=== PATIENT | female | born 1960 | race Caucasian/White ===

== ENCOUNTER 2020-02-13 16:53 | Inpatient (IN) | payer BC, MEDICARE, MEDICAID, SELFPAY ==
[2020-02-27 04:24] VITALS: BMI 19.3
[2020-02-28] VITALS (12 sets, daily range): BP systolic 80–108; BP diastolic 50–61; PULSE 67–75; RESP 18–28; TEMP 36.2–37.1; O2SAT 90–96
[2020-02-28] MEDS: 0.9 % Sodium Chloride Flush 3 ML SYRINGE 2 ML IVFLUSH ×3 (04:21→16:26)
[2020-02-28] MEDS: rOPINIRole HCL 2 MG TABLET G-TUBE ×3 (06:33→21:21)
[2020-02-28] MEDS: Venlafaxine HCL 25 MG TABLET G-TUBE ×3 (06:33→21:21)
[2020-02-28] MEDS: Albuterol/Iprat 2.5/0.5MG 3 ML AMPUL.NEB INHALE ×4 (07:29→20:18)
[2020-02-28] MEDS: Chlorhexidine Gluc Oral Rinse 15 ML MOUTHWASH BUCCAL (08:48)
[2020-02-28] MEDS: polyethylene glycoL 3350 17 GM POWD.PACK G-TUBE (08:48)
[2020-02-28] MEDS: amantadine HCL 100 MG CAPSULE G-TUBE ×2 (08:53→21:25)
[2020-02-28] MEDS: Benztropine Mesylate 0.5 MG TABLET G-TUBE ×2 (08:53→21:21)
[2020-02-28] MEDS: Sennosides/Docusate Sodium TABLET 1 TAB G-TUBE ×2 (08:53→21:21)
[2020-02-28] MEDS: Carbidopa/Levodopa 25/100 TABLET 1 TAB G-TUBE ×5 (08:53→21:34)
[2020-02-28] MEDS: Zinc Oxide 20% Ointment 28.35 GM TUBE 1 APPL TOPICAL (09:01)
--- NOTE | 2020-02-28 13:18 | PM.IMPN ---
Subjective Subjective Date of Service: 02/28/20 Interval History: nonverbal ROS unreliable Physical Exam Vital Signs and I&O and Narrative: Vital Signs and I&O: Vital Signs Temp 98.7 F 02/28/20 11:57 Pulse 70 02/28/20 11:57 Resp 18 02/28/20 11:57 BP 108/60 02/28/20 11:57 Pulse Ox 93 02/28/20 11:57 Intake & Output 02/27/20 02/28/20 02/28/20 18:59 06:59 18:59 Output Total 200 / 200 Balance -200 / -200 Urine Output (Aver age ml/kg/hr) 0.37 Output: Output, Urine Am ount 200 / 200 Other: Urine [place] Urine Color Harris Body Mass Index 19.3 Const: General: comfortable and ill appearing Resp: Effort & Inspection: uses accessory muscles (intermittently) Cardio: Heart sounds: S1 normal heart sound present and S2 normal heart sound present GI: Palpation (GI): Soft to palpation Neuro: Other: non verbal Objective Data Current Medications Generic Name Dose Route Start Last Admin Trade Name Freq PRN Reason Stop Dose Admin Acetaminophen 350 mg 02/28/20 00:00 Acetaminophen Oral Liquid 650 Mg/20.3 Ml Solution G-TUBE Q6H PRN Fever Albuterol/Ipratropium 3 ml 02/28/20 08:00 02/28/20 11:53 Albuterol/Iprat 2.5/0.5mg 3 Ml Ampul.Neb INHALE 3 ml RQID LEE ANN Administration Amantadine HCl 100 mg 02/28/20 09:00 02/28/20 08:53 Amantadine Hcl 100 Mg Capsule G-TUBE 100 mg BID LEE ANN Administration Benztropine Mesylate 0.5 mg 02/28/20 09:00 02/28/20 08:53 Benztropine Mesylate 0.5 Mg Tablet G-TUBE 0.5 mg BID LEE ANN Administration Carbidopa/Levodopa 1 tab 02/28/20 08:00 02/28/20 12:15 Carbidopa/Levodopa 25/100 Tablet G-TUBE 1 tab 0800,1100,1400 LEE ANN Administration Carbidopa/Levodopa 1 tab 02/28/20 17:00 Carbidopa/Levodopa 25/100 Tablet G-TUBE 1700,2000,2300 LEE ANN Chlorhexidine Gluconate 15 ml 02/28/20 09:00 02/28/20 08:48 Chlorhexidine Gluc Oral Rinse 15 Ml Mouthwash BUCCAL 15 ml BID LEE ANN Administration Entacapone 200 mg 02/28/20 08:00 02/28/20 12:15 Entacapone 200 Mg Tablet G-TUBE 200 mg 0800,1100,1400 LEE ANN Administration Entacapone 200 mg 02/28/20 17:00 Entacapone 200 Mg Tablet G-TUBE 1700,2000,2300 LEE ANN Lactulose 10 gm 02/28/20 00:00 Lactulose 20 Gm/30 Ml Solution G-TUBE BID PRN Constipation Melatonin 3 mg 02/28/20 21:00 Melatonin 3 Mg Tablet PO BEDTIME LEE ANN Morphine Sulfate 1 mg 02/28/20 00:00 Morphine Sulfate 2 Mg/Ml Cartridge IVPUSH Q4H PRN Pain, Severe (Pain Scale 7-10) Omeprazole 20 mg 02/28/20 06:30 02/28/20 06:33 Omeprazole 20 Mg/10 Ml Susp.Recon G-TUBE 20 mg BID@0630,1630 LEE ANN Administration Polyethylene Glycol 17 gm 02/28/20 09:00 02/28/20 08:48 Polyethylene Glycol 3350 17 Gm Powd.Pack G-TUBE 17 gm Q2D LEE ANN Administration Ropinirole HCl 2 mg 02/28/20 06:00 02/28/20 06:33 Ropinirole Hcl 2 Mg Tablet G-TUBE 2 mg TID@0600,1400,2200 LEE ANN Administration Senna/Docusate Sodium 1 tab 02/28/20 09:00 02/28/20 08:53 Sennosides/Docusate Sodium Tablet G-TUBE 1 tab BID LEE ANN Administration Sodium Chloride 2 ml 02/28/20 00:00 02/28/20 08:49 0.9 % Sodium Chloride Flush 3 Ml Syringe IVFLUSH 2 ml QSHIFT LEE ANN Administration Venlafaxine HCl 25 mg 02/28/20 06:00 02/28/20 06:33 Venlafaxine Hcl 25 Mg Tablet G-TUBE 25 mg TID@0600,1400,2200 LEE ANN Administration Zinc Oxide 1 appl 02/28/20 09:00 02/28/20 09:01 Zinc Oxide 20% Ointment 28.35 Gm Tube TOPICAL 1 appl DAILY LEE ANN Administration Protocol Labs CBC & Chem 7: 02/26/20 18:40 02/26/20 18:40 Labs: Laboratory Results - last 24 hr 02/26/20 02/26/20 18:40 18:40 MCV 106.1 H MCH 33.7 H MCHC 31.8 RDW Coeff of Margarita 14.5 Plt Count 88 L MPV 12.4 H Absolute Nucleated RBC 0.000 Nucleated RBC % (auto) 0.0 Bicarbonate 31 H Anion Gap 12 Estimated Creat Clear 69.9 Est GFR (Non-Af Amer) > 60 Random Glucose 129 H Progress Note: A&P (1) Parkinsons: Status: Acute (2) Acute and chronic respiratory failure: Status: Acute (3) Severe protein-calorie malnutrition: Status: Acute Assessment and Plan: This is an unfortunate 60-year-old female with advanced Parkinson's disease who presented to the hospital with acute on chronic respiratory failure requiring mechanical ventilation in the ICU. She was subsequently transferred out of the intensive care on 02/16/2020 where her treatment for pneumonia was continued. Unfortunately on 02/18/2022 patient had respiratory arrest (due to aspiration/mucus plug) leading to cardiac arrest. She had roughly 3 minutes of CPR with ROSC and was subsequently transferred back to the intensive care and placed on a ventilator. She was treated again for aspiration pneumonia and subsequently taken off the vent and transferred to the floor. 1. Acute on Chronic resp failure still on high flow 2. Aspiration / Mucous plugging remains afebrile has completed 7 days of Augmentin continue chest pt / other supportive care 3. Parkinson's diease -- advanced continue her meds 4. Poor dentition to be evaluated at facility --for extraction 5. Severe protein-calaorie malnutrition tube feeds 6. Anemia s/p prbc transfusions in the unit --monitor 7. GERD ppi 8. Severe protein calory malnutrition--tube feed DNR/DNI DVT pptx, mechanical -- due to significant anemia and previously documented thrombocytopenia with heparin products
[2020-02-28] MEDS: Melatonin 3 MG TABLET PO (21:21)
[2020-02-29] VITALS (14 sets, daily range): BP systolic 90–104; BP diastolic 52–72; PULSE 58–75; RESP 18–28; TEMP 36.4–37.2; O2SAT 90–99
[2020-02-29] MEDS: 0.9 % Sodium Chloride Flush 3 ML SYRINGE 2 ML IVFLUSH ×4 (00:20→22:44)
[2020-02-29] MEDS: Carbidopa/Levodopa 25/100 TABLET 1 TAB G-TUBE ×7 (00:20→22:43)
[2020-02-29] MEDS: rOPINIRole HCL 2 MG TABLET G-TUBE ×3 (05:52→21:05)
[2020-02-29] MEDS: Venlafaxine HCL 25 MG TABLET G-TUBE ×3 (05:52→21:05)
[2020-02-29] MEDS: Albuterol/Iprat 2.5/0.5MG 3 ML AMPUL.NEB INHALE ×4 (07:27→19:10)
[2020-02-29] MEDS: Benztropine Mesylate 0.5 MG TABLET G-TUBE ×2 (10:20→21:05)
[2020-02-29] MEDS: amantadine HCL 100 MG CAPSULE G-TUBE ×2 (10:21→21:05)
[2020-02-29] MEDS: Sennosides/Docusate Sodium TABLET 1 TAB G-TUBE (10:21)
[2020-02-29] MEDS: Zinc Oxide 20% Ointment 28.35 GM TUBE 1 APPL TOPICAL (10:22)
--- NOTE | 2020-02-29 10:48 | HO.PM.IMPN ---
Subjective Subjective Date of Service: 02/29/20 Interval History: Seen in follow-up for acute on chronic respiratory failure and having difficulty weaning from high-flow O2. No new events. She appeared comfortable. Minimal interaction Review of Systems Gen: no fever Neuro: confused Physical Exam Vital Signs and I&O and Narrative: Vital Signs and I&O: Vital Signs Temp 99 F 02/29/20 07:55 Pulse 68 02/29/20 07:55 Resp 19 02/29/20 07:55 BP 97/52 L 02/29/20 07:55 Pulse Ox 99 02/29/20 07:55 Body Mass Index 19.3 Constitutional Awake and Alert, No apparent distress Neck Supple, No lymphadenopathy Cardiovascular RRR, No M/R/G, S1 S2, No S3 S4, No pedal edema Respiratory Lungs clear, No respiratory distress Gastrointestinal Non tender, Non-distended Skin No rash Neurological non communicating Psychological flat Objective Data Current Medications Generic Name Dose Route Start Last Admin Trade Name Freq PRN Reason Stop Dose Admin Acetaminophen 350 mg 02/28/20 00:00 Acetaminophen Oral Liquid 650 Mg/20.3 Ml Solution G-TUBE Q6H PRN Fever Albuterol/Ipratropium 3 ml 02/28/20 08:00 02/29/20 07:27 Albuterol/Iprat 2.5/0.5mg 3 Ml Ampul.Neb INHALE 3 ml RQID LEE ANN Administration Amantadine HCl 100 mg 02/28/20 09:00 02/29/20 10:21 Amantadine Hcl 100 Mg Capsule G-TUBE 100 mg BID LEE ANN Administration Benztropine Mesylate 0.5 mg 02/28/20 09:00 02/29/20 10:20 Benztropine Mesylate 0.5 Mg Tablet G-TUBE 0.5 mg BID LEE ANN Administration Carbidopa/Levodopa 1 tab 02/28/20 08:00 02/29/20 07:50 Carbidopa/Levodopa 25/100 Tablet G-TUBE 1 tab 0800,1100,1400 LEE ANN Administration Carbidopa/Levodopa 1 tab 02/28/20 17:00 02/29/20 00:20 Carbidopa/Levodopa 25/100 Tablet G-TUBE 1 tab 1700,2000,2300 LEE ANN Administration Chlorhexidine Gluconate 15 ml 02/28/20 09:00 02/29/20 10:21 Chlorhexidine Gluc Oral Rinse 15 Ml Mouthwash BUCCAL Not Given BID LEE ANN Entacapone 200 mg 02/28/20 08:00 02/29/20 07:50 Entacapone 200 Mg Tablet G-TUBE 200 mg 0800,1100,1400 LEE ANN Administration Entacapone 200 mg 02/28/20 17:00 02/29/20 00:20 Entacapone 200 Mg Tablet G-TUBE 200 mg 1700,2000,2300 LEE ANN Administration Lactulose 10 gm 02/28/20 00:00 Lactulose 20 Gm/30 Ml Solution G-TUBE BID PRN Constipation Melatonin 3 mg 02/28/20 21:00 02/28/20 21:21 Melatonin 3 Mg Tablet PO 3 mg BEDTIME LEE ANN Administration Morphine Sulfate 1 mg 02/28/20 00:00 Morphine Sulfate 2 Mg/Ml Cartridge IVPUSH Q4H PRN Pain, Severe (Pain Scale 7-10) Omeprazole 20 mg 02/28/20 06:30 02/29/20 05:52 Omeprazole 20 Mg/10 Ml Susp.Recon G-TUBE 20 mg BID@0630,1630 LEE ANN Administration Polyethylene Glycol 17 gm 02/28/20 09:00 02/28/20 08:48 Polyethylene Glycol 3350 17 Gm Powd.Pack G-TUBE 17 gm Q2D LEE ANN Administration Ropinirole HCl 2 mg 02/28/20 06:00 02/29/20 05:52 Ropinirole Hcl 2 Mg Tablet G-TUBE 2 mg TID@0600,1400,2200 LEE ANN Administration Senna/Docusate Sodium 1 tab 02/28/20 09:00 02/29/20 10:21 Sennosides/Docusate Sodium Tablet G-TUBE 1 tab BID LEE ANN Administration Sodium Chloride 2 ml 02/28/20 00:00 02/29/20 08:01 0.9 % Sodium Chloride Flush 3 Ml Syringe IVFLUSH 2 ml QSHIFT LEE ANN Administration Venlafaxine HCl 25 mg 02/28/20 06:00 02/29/20 05:52 Venlafaxine Hcl 25 Mg Tablet G-TUBE 25 mg TID@0600,1400,2200 LEE ANN Administration Zinc Oxide 1 appl 02/28/20 09:00 02/29/20 10:22 Zinc Oxide 20% Ointment 28.35 Gm Tube TOPICAL 1 appl DAILY LEE ANN Administration Protocol Labs CBC & Chem 7: 02/26/20 18:40 09/29/20 18:40 Assessment and Plan (1) Severe protein-calorie malnutrition: Status: Acute (2) Acute and chronic respiratory failure: Status: Acute (3) Parkinsons: Status: Acute Assessment and Plan: 60-year-old female with advanced Parkinson's disease who presented to the hospital with acute on chronic respiratory failure requiring mechanical ventilation in the ICU. She was subsequently transferred out of the intensive care on 02/16/2020 where her treatment for pneumonia was continued. Unfortunately on 02/18/2022 patient had respiratory arrest (due to aspiration/mucus plug) leading to cardiac arrest. She had roughly 3 minutes of CPR with ROSC and was subsequently transferred back to the intensive care and placed on a ventilator. She was treated again for aspiration pneumonia and subsequently taken off the vent and transferred to the floor. 1. Acute on Chronic resp failure still on high flow and not making much progress 2. Aspiration / Mucous plugging remains afebrile has completed 7 days of Augmentin continue chest pt / other supportive care 3. Parkinson's diease -- advanced continue her meds 4. Poor dentition to be evaluated on outpatient basis for extraction 5. Severe protein-calaorie malnutrition tube feeds 6. Anemia s/p prbc transfusion, monitor. Transfuse if Hgb < 7 7. GERD--PPI 8. 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 Patient's overall progonosis is very poor and will attempt to talk to family again about possible consideration of hospice/[employer] WORK[employer]ICE especially in light of severe hypoxia and unable to wean from high flow O2
--- NOTE | 2020-02-29 12:08 | MHC.CM.PN ---
per multi dis rounds pt remains on high flow 02 therefore ca not rewturn to [facility] at this time
--- NOTE | 2020-02-29 13:49 | MHC.CLN ---
F/U PT TOLERATING OSMOLITE AT MAX GOAL RATE 40CC/HR WITH 120CC FREE WATER FLUSHES Q 4 HRS PROVIDES 1440KCALS (38KCALS/KG), 60G PROTEIN (1.6G/KG), 1451CC TOTAL WATER (38CC/KG) MONITOR TOLERANCE, LYTES AND RESIDUALS CLOSELY RAJENDRA IN PLACE FOR WOUND HEALING FOLLOWING
--- NOTE | 2020-02-29 19:16 | PC.NURSE ---
Upon initail assesment, this RN found pt o2 sats 86% on high flow. Resp at bedside suntion pt for thick secreatiosn and admin resp treat. Sats increased to 89-90%. Pt, with alert labored breathing but no other signs of distress. Will cont to monitor
[2020-02-29] MEDS: Melatonin 3 MG TABLET PO (21:05)
[2020-03-01] VITALS (15 sets, daily range): BP systolic 82–104; BP diastolic 44–63; PULSE 55–70; RESP 18–32; TEMP 36.3–36.9; O2SAT 90–93
[2020-03-01] MEDS: Venlafaxine HCL 25 MG TABLET G-TUBE ×3 (05:38→21:11)
[2020-03-01] MEDS: rOPINIRole HCL 2 MG TABLET G-TUBE ×3 (05:38→21:11)
[2020-03-01] MEDS: Carbidopa/Levodopa 25/100 TABLET 1 TAB G-TUBE ×6 (07:46→23:02)
[2020-03-01] MEDS: 0.9 % Sodium Chloride Flush 3 ML SYRINGE 2 ML IVFLUSH ×2 (07:47→18:31)
[2020-03-01] MEDS: Albuterol/Iprat 2.5/0.5MG 3 ML AMPUL.NEB INHALE ×4 (08:03→19:57)
[2020-03-01 10:17] LABS: Basophils Percent Auto 0.3 % (0-2); Eosinophils Percent Auto 0.5 % (0-4); Hemoglobin 7.7 g/dl (12.0-16.0); Lymphocytes Percent Auto 6.6 % (20-40); MANUAL DIFF FLAG SCAN; Mean Corpuscular Volume 106.6 fL (80-98); PLT CLUMP 1; SCAN SMEAR FLAG 1
[2020-03-01 10:19] LABS: Hematocrit 24.2 % (37-47); Imm Gran Abs Auto 0.04 X10*3/uL (0.00-0.03); Imm Gran Pct Auto 0.5 % (0.0-0.4); Lymphocytes Absolute Auto 0.5 X10*3/uL (1.2-4.9); Mean Corpuscular HGB Conc 31.8 g/dl (31.0-35.0); Mean Corpuscular Hemoglobin 33.9 pg (27.0-33.0); Mean Platelet Volume 13.6 fL (9.4-12.3); Monocytes Absolute Auto 0.5 X10*3/uL (0.1-1.2); Monocytes Percent Auto 7.1 % (2-11); Neutrophils Absolute Auto 6.2 X10*3/uL (2.0-8.3); Red Blood Count 2.27 X10*6/uL (4.20-5.50); Red Cell Distribution Width 14.5 % (11.0-16.0)
[2020-03-01] MEDS: polyethylene glycoL 3350 17 GM POWD.PACK G-TUBE (10:19)
[2020-03-01] MEDS: Benztropine Mesylate 0.5 MG TABLET G-TUBE ×2 (10:19→21:11)
[2020-03-01] MEDS: amantadine HCL 100 MG CAPSULE G-TUBE ×2 (10:19→21:11)
[2020-03-01] MEDS: Sennosides/Docusate Sodium TABLET 1 TAB G-TUBE (10:19)
[2020-03-01 10:20] LABS: Anion Gap 13 (12-20); Blood Urea Nitrogen 24 mg/dL (9-16); Calcium 8.1 mg/dL (8.4-10.2); Carbon Dioxide 33 mmol/L (22-29); Chloride 95 mmol/L (96-108); Creatinine Clr Calc Pharmacy 64.5; Estimated Glomerular Filt Rate > 60; Glucose Random 103 mg/dL (60-115); Sodium 136 mmol/L (135-145)
[2020-03-01] MEDS: Zinc Oxide 20% Ointment 28.35 GM TUBE 1 APPL TOPICAL (10:20)
[2020-03-01 10:21] LABS: PLT ABN DIST 1
[2020-03-01 12:11] LABS: White Blood Count 7.3 X10*3/uL (4.8-10.8)
[2020-03-01 12:14] LABS: Platelet Count 69 X10*3/uL (160-400)
[2020-03-01 12:16] LABS: SLIDE REVIEW VERIFIED
--- NOTE | 2020-03-01 12:59 | P.PNIM_ITS ---
Subjective Subjective Date of Service: 03/01/20 Interval History: patient seen and examined at bedside patient continues to remain on 60% of high-flow oxygen Physical Exam Vital Signs and I&O and Narrative: Vital Signs and I&O: Vital Signs Temp 98.0 F 03/01/20 12:12 Pulse 67 03/01/20 12:12 Resp 18 03/01/20 12:12 BP 94/60 03/01/20 07:51 Pulse Ox 93 03/01/20 12:12 Intake & Output 02/29/20 03/01/20 03/01/20 18:59 06:59 18:59 Output Total 300 / 825 525 / 825 Balance -300 / -825 -525 / -825 Urine Output (Aver age ml/kg/hr) 0.56 0.97 0.97 Output: Output, Urine Am ount 300 / 600 300 / 600 Output, Urine Am ount (Catheter) 225 / 225 Urethral 225 / 225 Other: NPO Yes Yes Yes Number of Incont inent Bowel 2 1 Movements Urine Color [place] Stool incontinen Stool Color Brown Brown Stool Consistenc y Liquid Liquid Body Mass Index 19.3 Constitutional Awake and Alert, No apparent distress Neck Supple, No lymphadenopathy Cardiovascular RRR, No M/R/G, S1 S2, No S3 S4, No pedal edema Respiratory Lungs clear, No respiratory distress Gastrointestinal Non tender, Non-distended Skin No rash Neurological non communicating Psychological flat Const: General: comfortable and ill appearing Resp: Effort & Inspection: uses accessory muscles (intermittently) Cardio: Heart sounds: S1 normal heart sound present and S2 normal heart sound present GI: Palpation (GI): Soft to palpation Neuro: Other: non verbal Objective Data Current Medications Generic Name Dose Route Start Last Admin Trade Name Freq PRN Reason Stop Dose Admin Acetaminophen 350 mg 02/28/20 00:00 Acetaminophen Oral Liquid 650 Mg/20.3 Ml Solution G-TUBE Q6H PRN Fever Albuterol/Ipratropium 3 ml 02/28/20 08:00 03/01/20 11:33 Albuterol/Iprat 2.5/0.5mg 3 Ml Ampul.Neb INHALE 3 ml RQID LEE ANN Administration Amantadine HCl 100 mg 02/28/20 09:00 03/01/20 10:19 Amantadine Hcl 100 Mg Capsule G-TUBE 100 mg BID LEE ANN Administration Benztropine Mesylate 0.5 mg 02/28/20 09:00 03/01/20 10:19 Benztropine Mesylate 0.5 Mg Tablet G-TUBE 0.5 mg BID LEE ANN Administration Carbidopa/Levodopa 1 tab 02/28/20 08:00 03/01/20 12:01 Carbidopa/Levodopa 25/100 Tablet G-TUBE 1 tab 0800,1100,1400 LEE ANN Administration Carbidopa/Levodopa 1 tab 02/28/20 17:00 02/29/20 22:43 Carbidopa/Levodopa 25/100 Tablet G-TUBE 1 tab 1700,2000,2300 LEE ANN Administration Chlorhexidine Gluconate 15 ml 02/28/20 09:00 03/01/20 10:19 Chlorhexidine Gluc Oral Rinse 15 Ml Mouthwash BUCCAL Not Given BID LEE ANN Entacapone 200 mg 02/28/20 08:00 03/01/20 12:01 Entacapone 200 Mg Tablet G-TUBE 200 mg 0800,1100,1400 LEE ANN Administration Entacapone 200 mg 02/28/20 17:00 02/29/20 22:43 Entacapone 200 Mg Tablet G-TUBE 200 mg 1700,2000,2300 LEE ANN Administration Lactulose 10 gm 02/28/20 00:00 Lactulose 20 Gm/30 Ml Solution G-TUBE BID PRN Constipation Melatonin 3 mg 02/28/20 21:00 02/29/20 21:05 Melatonin 3 Mg Tablet PO 3 mg BEDTIME LEE ANN Administration Morphine Sulfate 1 mg 02/28/20 00:00 Morphine Sulfate 2 Mg/Ml Cartridge IVPUSH Q4H PRN Pain, Severe (Pain Scale 7-10) Omeprazole 20 mg 02/28/20 06:30 03/01/20 05:38 Omeprazole 20 Mg/10 Ml Susp.Recon G-TUBE 20 mg BID@0630,1630 LEE ANN Administration Polyethylene Glycol 17 gm 02/28/20 09:00 03/01/20 10:19 Polyethylene Glycol 3350 17 Gm Powd.Pack G-TUBE 17 gm Q2D LEE ANN Administration Ropinirole HCl 2 mg 02/28/20 06:00 03/01/20 05:38 Ropinirole Hcl 2 Mg Tablet G-TUBE 2 mg TID@0600,1400,2200 LEE ANN Administration Senna/Docusate Sodium 1 tab 02/28/20 09:00 03/01/20 10:19 Sennosides/Docusate Sodium Tablet G-TUBE 1 tab BID LEE ANN Administration Sodium Chloride 2 ml 02/28/20 00:00 03/01/20 07:47 0.9 % Sodium Chloride Flush 3 Ml Syringe IVFLUSH 2 ml QSHIFT LEE ANN Administration Venlafaxine HCl 25 mg 02/28/20 06:00 03/01/20 05:38 Venlafaxine Hcl 25 Mg Tablet G-TUBE 25 mg TID@0600,1400,2200 LEE ANN Administration Zinc Oxide 1 appl 02/28/20 09:00 03/01/20 10:20 Zinc Oxide 20% Ointment 28.35 Gm Tube TOPICAL 1 appl DAILY LEE ANN Administration Protocol Labs CBC & Chem 7: 03/01/20 08:54 03/01/20 08:54 Labs: Laboratory Results - last 24 hr 03/01/20 03/01/20 08:54 08:54 MCV 106.6 H MCH 33.9 H MCHC 31.8 RDW 14.5 Plt Count 69 L MPV 13.6 H Immature Gran % (Auto) 0.5 H Neut % (Auto) 85.0 H Lymph % (Auto) 6.6 L [place] % (Auto) 7.1 Eos % (Auto) 0.5 Baso % (Auto) 0.3 Neut # (Auto) 6.2 Lymph # (Auto) 0.5 L [place] # (Auto) 0.5 Eos # (Auto) 0.0 Baso # (Auto) 0.0 Abs Immat Gran (auto) 0.04 H Absolute Nucleated RBC 0.000 Nucleated RBC % (auto) 0.0 Smear Tech's Comments VERIFIED Anion Gap 13 Estim Creat Clear Calc 64.5 Estimated GFR > 60 Random Glucose 103 Calcium 8.1 L Assessment and Plan (1) Severe protein-calorie malnutrition: Status: Acute (2) Acute and chronic respiratory failure: Status: Acute (3) Parkinsons: Status: Acute Assessment and Plan: 60-year-old female with advanced Parkinson's disease who presented to the hospital with acute on chronic respiratory failure requiring mechanical ventilation in the ICU. She was subsequently transferred out of the intensive care on 02/16/2020 where her treatment for pneumonia was continued. Unfortunately on 02/18/2022 patient had respiratory arrest (due to aspiration/mucus plug) leading to cardiac arrest. She had roughly 3 minutes of CPR with ROSC and was subsequently transferred back to the intensive care and placed on a ventilator. She was treated again for aspiration pneumonia and subsequently taken off the vent and transferred to the floor. 1. Acute on Chronic resp failure continues to require high-flow oxygen still a unable to wean down 2. Aspiration / Mucous plugging remains afebrile has completed 7 days of Augmentin continue chest pt / other supportive care 3. Parkinson's diease -- advanced continue her meds 4. Poor dentition to be evaluated on outpatient basis for extraction 5. Severe protein-calaorie malnutrition tube feeds 6. Anemia hemoglobin again dropped to 7.7 today Will transfuse 1 unit of PRBCs monitor H&H continue PPI transfuse below 7 7. GERD--PPI 8. 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 Patient's overall progonosis is very poor
[2020-03-01] MEDS: Morphine Sulfate 2 MG/ML CARTRIDGE 1 MG IVPUSH (13:18)
[2020-03-01] MEDS: Melatonin 3 MG TABLET PO (21:12)
[2020-03-02] VITALS (15 sets, daily range): BP systolic 100–187; BP diastolic 50–83; PULSE 59–70; RESP 4–28; TEMP 36.3–37.1; O2SAT 87–100
[2020-03-02] MEDS: 0.9 % Sodium Chloride 500 ML 999 ML IVCONT (01:09)
[2020-03-02] MEDS: Albuterol/Iprat 2.5/0.5MG 3 ML AMPUL.NEB INHALE ×5 (02:27→20:55)
[2020-03-02 02:30] LABS: Pt Ventilation O2% 100%
[2020-03-02 02:31] LABS: HCO3 ABG 39 mmol/l (22-26); PO2 ABG 285 mmhg (83-108); pH ABG 7.25 (7.35-7.45)
[2020-03-02] MEDS: 0.9 % Sodium Chloride Flush 3 ML SYRINGE 2 ML IVFLUSH ×3 (02:31→23:27)
[2020-03-02 02:32] LABS: ABG PCO2 91 mmhg (32-45); Base Excess ABG 9.1; Oxygen Saturation ABG 99.6 %
--- NOTE | 2020-03-02 02:40 | PM.EVENT ---
Event Note Event Note: FUEL OIL CLERK called around 2 am 03/02/20. Patient seen and evaluated at the bedside. New change in mental status, at present awake but not alert or oriented, not responsive to verbal or painful stimuli. code status listed as DNR/DNI. Vitals stable. O2 sat 100% now. ABG obtained showed respiratory acidosis with PCO2 90. informed (Job at the phone number listed on chart). Code status remains the same. Will continue with High flow nasal cannula as of now, Albuterol inhaler as ordered and close monitoring.
--- NOTE | 2020-03-02 03:19 | PC.NURSE ---
tele monitor alerted this Rn to decreased pulse, 40's, and undetectable 02 sat, Rapid response called. pt found to be real in color agonal breathing, trach congested with sputum, pt suctioned for small amount of loose sputum, bagged in between to maintain sats. Md to bedside nursing ranch supervisor to bedside, new orders for ABGs, ammonia level and breathing treatment. Md notified pts family in change of status and confirmed DNR DNI status. Pts heart rate returned to Sr in 60's sats ranging from 90s to 80s. pt returned to high flow 02 90% at 50L. Pco2 critical high at 90. made aware, no new orders at this time. pt care provided. 1 unit rbcs infusing. will continue to monitor
[2020-03-02 04:11] LABS: Ammonia 57 umol/L (13-55)
[2020-03-02] MEDS: Venlafaxine HCL 25 MG TABLET G-TUBE (05:43)
[2020-03-02] MEDS: rOPINIRole HCL 2 MG TABLET G-TUBE (05:43)
[2020-03-02] MEDS: Carbidopa/Levodopa 25/100 TABLET 1 TAB G-TUBE ×3 (07:43→14:12)
[2020-03-02 08:13] LABS: Glucose, Whole Blood 69 mg/dL (60-115)
[2020-03-02 08:36] LABS: Basophils Percent Auto 0.2 % (0-2); Eosinophils Percent Auto 0.3 % (0-4); Hematocrit 27.8 % (37-47); Hemoglobin 8.8 g/dl (12.0-16.0); Imm Gran Abs Auto 0.02 X10*3/uL (0.00-0.03); Imm Gran Pct Auto 0.3 % (0.0-0.4); Lymphocytes Absolute Auto 0.3 X10*3/uL (1.2-4.9); Lymphocytes Percent Auto 5.3 % (20-40); MANUAL DIFF FLAG SCAN; Mean Corpuscular HGB Conc 31.7 g/dl (31.0-35.0); Mean Corpuscular Hemoglobin 32.2 pg (27.0-33.0); Mean Corpuscular Volume 101.8 fL (80-98); Mean Platelet Volume 12.6 fL (9.4-12.3); Monocytes Absolute Auto 0.5 X10*3/uL (0.1-1.2); Monocytes Percent Auto 7.3 % (2-11); Neutrophils Absolute Auto 5.4 X10*3/uL (2.0-8.3); Neutrophils Percent Auto 86.6 % (45-73); Red Blood Count 2.73 X10*6/uL (4.20-5.50); Red Cell Distribution Width 16.6 % (11.0-16.0); SCAN SMEAR FLAG 1; White Blood Count 6.3 X10*3/uL (4.8-10.8)
[2020-03-02 08:42] LABS: Platelet Count 89 X10*3/uL (160-400)
[2020-03-02 08:58] LABS: Anion Gap 10 (12-20); Blood Urea Nitrogen 25 mg/dL (9-16); Calcium 8.1 mg/dL (8.4-10.2); Carbon Dioxide 36 mmol/L (22-29); Chloride 95 mmol/L (96-108); Creatinine Clr Calc Pharmacy 71.1; Estimated Glomerular Filt Rate > 60; Glucose Random 107 mg/dL (60-115); Potassium 4.9 mmol/l (3.3-5.1); Sodium 136 mmol/L (135-145)
[2020-03-02 09:10] LABS: SLIDE REVIEW VERIFIED
[2020-03-02] MEDS: Benztropine Mesylate 0.5 MG TABLET G-TUBE (10:44)
[2020-03-02] MEDS: amantadine HCL 100 MG CAPSULE G-TUBE (10:44)
[2020-03-02] MEDS: Zinc Oxide 20% Ointment 28.35 GM TUBE 1 APPL TOPICAL (10:46)
[2020-03-02] MEDS: Morphine Sulfate 2 MG/ML CARTRIDGE 1 MG IVPUSH (14:11)
--- NOTE | 2020-03-02 14:18 | P.PNIM_ITS ---
Subjective Subjective Interval History: patient seen and examined at bedside patient continues to remain on 60% of high-flow oxygen patient became hypoxic last night later oxygenation improved patient's condition deteriorating Physical Exam Vital Signs and I&O and Narrative: Vital Signs and I&O: Vital Signs Temp 97.3 F 03/02/20 11:20 Pulse 60 03/02/20 11:20 Resp 22 H 03/02/20 11:38 BP 106/50 L 03/02/20 11:20 Pulse Ox 91 L 03/02/20 11:20 Intake & Output 03/01/20 03/02/20 03/02/20 18:59 06:59 18:59 Intake Total 850 / 850 Output Total 300 / 1000 700 / 1000 Balance -300 / -150 150 / -150 Urine Output (Aver age ml/kg/hr) 0.56 1.30 Intake: Intake (Blood Pr oduct) Amount 350 / 350 Red Blood Cell s (E0336) Unit 350 / 350 [id number] Intake, IV Amoun t 500 / 500 0.9 % Sodium C hloride 500 ml @ 500 / 500 999 mls/hr IVC ONT .Q31M ONE Rx# :[id number] Output: Output, Urine Am ount (Catheter) 300 / 1000 700 / 1000 Urethral 300 / 1000 700 / 1000 Other: NPO Yes Number of Bowel Movements 2 Number of Incont inent Bowel 1 2 Movements Urine Al[place]uer Urine Color Concentrated [place] Stool incontinen inct Stool Color Brown Dark Brown Stool Consistenc y Liquid Loose Body Mass Index 19.3 Constitutional Awake and Alert, No apparent distress Neck Supple, No lymphadenopathy Cardiovascular RRR, No M/R/G, S1 S2, No S3 S4, No pedal edema Respiratory Lungs clear, No respiratory distress Gastrointestinal Non tender, Non-distended Skin No rash Neurological non communicating Psychological flat Const: General: comfortable and ill appearing Resp: Effort & Inspection: uses accessory muscles (intermittently) Cardio: Heart sounds: S1 normal heart sound present and S2 normal heart sound present GI: Palpation (GI): Soft to palpation Neuro: Other: non verbal Objective Data Current Medications Generic Name Dose Route Start Last Admin Trade Name Freq PRN Reason Stop Dose Admin Acetaminophen 350 mg 02/28/20 00:00 Acetaminophen Oral Liquid 650 Mg/20.3 Ml Solution G-TUBE Q6H PRN Fever Albuterol/Ipratropium 3 ml 02/28/20 08:00 03/02/20 11:13 Albuterol/Iprat 2.5/0.5mg 3 Ml Ampul.Neb INHALE 3 ml RQID LEE ANN Administration Amantadine HCl 100 mg 02/28/20 09:00 03/02/20 10:44 Amantadine Hcl 100 Mg Capsule G-TUBE 100 mg BID LEE ANN Administration Benztropine Mesylate 0.5 mg 02/28/20 09:00 03/02/20 10:44 Benztropine Mesylate 0.5 Mg Tablet G-TUBE 0.5 mg BID LEE ANN Administration Carbidopa/Levodopa 1 tab 02/28/20 08:00 03/02/20 14:12 Carbidopa/Levodopa 25/100 Tablet G-TUBE 1 tab 0800,1100,1400 LEE ANN Administration Carbidopa/Levodopa 1 tab 02/28/20 17:00 03/01/20 23:02 Carbidopa/Levodopa 25/100 Tablet G-TUBE 1 tab 1700,2000,2300 LEE ANN Administration Chlorhexidine Gluconate 15 ml 02/28/20 09:00 03/02/20 10:45 Chlorhexidine Gluc Oral Rinse 15 Ml Mouthwash BUCCAL Not Given BID LEE ANN Entacapone 200 mg 02/28/20 08:00 03/02/20 14:12 Entacapone 200 Mg Tablet G-TUBE 200 mg 0800,1100,1400 LEE ANN Administration Entacapone 200 mg 02/28/20 17:00 03/01/20 23:02 Entacapone 200 Mg Tablet G-TUBE 200 mg 1700,2000,2300 LEE ANN Administration Lactulose 10 gm 02/28/20 00:00 Lactulose 20 Gm/30 Ml Solution G-TUBE BID PRN Constipation Melatonin 3 mg 02/28/20 21:00 03/01/20 21:12 Melatonin 3 Mg Tablet PO 3 mg BEDTIME LEE ANN Administration Morphine Sulfate 1 mg 02/28/20 00:00 03/02/20 14:11 Morphine Sulfate 2 Mg/Ml Cartridge IVPUSH 1 mg Q4H PRN Administration Pain, Severe (Pain Scale 7-10) Omeprazole 20 mg 02/28/20 06:30 03/02/20 05:44 Omeprazole 20 Mg/10 Ml Susp.Recon G-TUBE 20 mg BID@0630,1630 LEE ANN Administration Polyethylene Glycol 17 gm 02/28/20 09:00 03/01/20 10:19 Polyethylene Glycol 3350 17 Gm Powd.Pack G-TUBE 17 gm Q2D LEE ANN Administration Ropinirole HCl 2 mg 02/28/20 06:00 03/02/20 05:43 Ropinirole Hcl 2 Mg Tablet G-TUBE 2 mg TID@0600,1400,2200 LEE ANN Administration Senna/Docusate Sodium 1 tab 02/28/20 09:00 03/02/20 10:46 Sennosides/Docusate Sodium Tablet G-TUBE Not Given BID LEE ANN Sodium Chloride 2 ml 02/28/20 00:00 03/02/20 07:43 0.9 % Sodium Chloride Flush 3 Ml Syringe IVFLUSH 2 ml QSHIFT LEE ANN Administration Venlafaxine HCl 25 mg 02/28/20 06:00 03/02/20 05:43 Venlafaxine Hcl 25 Mg Tablet G-TUBE 25 mg TID@0600,1400,2200 LEE ANN Administration Zinc Oxide 1 appl 02/28/20 09:00 03/02/20 10:46 Zinc Oxide 20% Ointment 28.35 Gm Tube TOPICAL 1 appl DAILY LEE ANN Administration Protocol Labs CBC & Chem 7: 03/02/20 07:53 03/02/20 07:53 Labs: Laboratory Results - last 24 hr 03/01/20 03/02/20 03/02/20 23:58 02:30 02:35 MCV MCH MCHC RDW Plt Count MPV Immature Gran % (Auto) Neut % (Auto) Lymph % (Auto) [place] % (Auto) Eos % (Auto) Baso % (Auto) Neut # (Auto) Lymph # (Auto) [place] # (Auto) Eos # (Auto) Baso # (Auto) Abs Immat Gran (auto) Absolute Nucleated RBC Nucleated RBC % (auto) Smear Tech's Comments ABG pH 7.25 L ABG pCO2 91 H* ABG pO2 285 H ABG HCO3 39 H ABG O2 Saturation 99.6 ABG Base Excess 9.1 Oxygen Given 100% Anion Gap Estim Creat Clear Calc Estimated GFR POC Glucose Random Glucose Calcium Ammonia 57 H Blood Type A Positive Antibody Screen NEGATIVE Crossmatch See Detail 03/02/20 03/02/20 03/02/20 07:15 07:53 07:53 MCV 101.8 H MCH 32.2 MCHC 31.7 RDW 16.6 H Plt Count 89 L D MPV 12.6 H Immature Gran % (Auto) 0.3 Neut % (Auto) 86.6 H Lymph % (Auto) 5.3 L [place] % (Auto) 7.3 Eos % (Auto) 0.3 Baso % (Auto) 0.2 Neut # (Auto) 5.4 Lymph # (Auto) 0.3 L [place] # (Auto) 0.5 Eos # (Auto) 0.0 Baso # (Auto) 0.0 Abs Immat Gran (auto) 0.02 Absolute Nucleated RBC 0.000 Nucleated RBC % (auto) 0.0 Smear Tech's Comments VERIFIED ABG pH ABG pCO2 ABG pO2 ABG HCO3 ABG O2 Saturation ABG Base Excess Oxygen Given Anion Gap 10 L Estim Creat Clear Calc 71.1 Estimated GFR > 60 POC Glucose 69 Random Glucose 107 Calcium 8.1 L Ammonia Blood Type Antibody Screen Crossmatch Assessment and Plan (1) Severe protein-calorie malnutrition: Status: Acute (2) Acute and chronic respiratory failure: Status: Acute (3) Parkinsons: Status: Acute Assessment and Plan: 60-year-old female with advanced Parkinson's disease who presented to the hospital with acute on chronic respiratory failure requiring mechanical ventilation in the ICU. She was subsequently transferred out of the intensive care on 02/16/2020 where her treatment for pneumonia was continued. Unfortunately on 02/18/2022 patient had respiratory arrest (due to aspiration/mucus plug) leading to cardiac arrest. She had roughly 3 minutes of CPR with ROSC and was subsequently transferred back to the intensive care and placed on a ventilator. She was treated again for aspiration pneumonia and subsequently taken off the vent and transferred to the floor. 1. Acute on Chronic resp failure 2. Aspiration / Mucous plugging continue high-flow oxygen frequent suctioning patient became hypoxic last night , and oxygen improved later, patient again became hypoxic in 70s today oxygenation improved after suctioning repeat ABG last night shows pCO2 retention and worsening acidosis completed 7 days of Augmentin continue chest pt / other supportive care 3. Parkinson's diease -- advanced continue her meds 4. Poor dentition to be evaluated on outpatient basis for extraction 5. Severe protein-calaorie malnutrition tube feeds 6. Anemia hemoglobin again dropped to 7.7 today Will transfuse 1 unit of PRBCs monitor H&H continue PPI transfuse below 7 7. GERD--PPI 8. 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 Patient's overall progonosis is very poor, and patient's condition deteriorating, patient oxygenation dropped last night and today and improved later after suctioning, goals of care again discussed with patient's healthcare proxy, explained about patient's poor prognosis, family decided for DNR DNI, does not want intubation, but still not able to decided for comfort care, per he will discuss with family and then make a decision,
--- NOTE | 2020-03-02 15:16 | PC.NURSE ---
Pt currently on 60% 40L , O2 stat noted dropped to 80%,MD notified. Respiratory called to bedside pt suctioned response was good. O2 stat now 90-93%. Increased swelling noted to bilateral arms and Right orbital area. MD notifed. Pt is with family appears comfortable.
--- NOTE | 2020-03-02 18:07 | W.MHC.ACPN ---
Advanced Care Planning Note Advanced Care Planning Note Time spent (in minutes): 16 Narrative: 60-YEAR-OLD FEMALE PATIENT WITH ADVANCED PARKINSON'S DISEASE PRESENTED TO [facility] DUE TO ACUTE ON CHRONIC RESPIRATORY FAILURE REQUIRED MECHANICAL VENTILATION UNFORTUNATELY ON 02/16 2ND PATIENT HAD A RESPIRATORY ARREST LEADING TO CARDIAC ARREST REQUIRED 3 MINUTES OF CPR AND WAS SUBSEQUENTLY TRANSFERRED BACK TO INTENSIVE CARE UNIT AND WAS PLACED ON VENTILATOR PATIENT NOTED TO HAVE ASPIRATION PNEUMONIA SUBSEQUENTLY SHE WAS WEANED OFF THE VENTILATOR AND TRANSFERRED TO THE FLOOR PATIENT ON THE FLOOR HAS BEEN NOTED TO HAVE MULTIPLE EPISODES OF HYPOXIA CURRENTLY REQUIRING HIGH-FLOW OXYGEN DUE TO POOR QUALITY OF LIFE WITH ADVANCED PARKINSON'S DISEASE DEPENDENT ON G-TUBE FEEDINGS AND TRACH CASE WAS DISCUSSED WITH FAMILY INCLUDING PATIENT'S HODAN MURRAY PATIENT'S 2 DAUGHTERS AND FATHER REGARDING PLAN OF CARE AND THEY ALL AGREED THAT 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 . Problems Discussed (1) Acute and chronic respiratory failure: (2) Parkinsons: (3) Aspiration pneumonia: (4) Severe protein-calorie malnutrition:
[2020-03-02] MEDS: Morphine Sulfate 2 MG/ML CARTRIDGE IVPUSH ×2 (20:10→23:25)
--- NOTE | 2020-03-02 22:37 | PC.NURSE ---
ASSUMED CARE OF PATIENT AT 1845. PATIENT'S STATUS WAS CHANGED TO NOTARY PUBLIC 03/02/20 PER PRIOR NURSE AND MD. PER REPORT, GTUBE WAS REMOVED AND MEDICATIONS WERE NOT TO BE GIVEN EXCEPT IF NEEDED FOR PAIN. ON ASSESSMENT OF PATIENT IT WAS NOTED THAT SHE WAS STILL ON HIGHFLOW VIA HER TRACH. PER NIGHT MD MEEKS, RESPIRATORY MANAGEMENT WAS TO CONTINUE AND NEBULIZERS AND HIGH FLOW WERE TO REMAIN IN PLACE. PATIENT IS CURRENTLY RESTING COMFORTABLY, O2 SAT 91%, FAMILY REQUESTING TO BE UPDATED IF THERE ARE ANY CHANGES, WILL CONTINUE TO MONITOR.
[2020-03-03 04:16] VITALS: RESP 16
[2020-03-03] MEDS: Morphine Sulfate 2 MG/ML CARTRIDGE IVPUSH ×3 (04:16→11:45)
[2020-03-03 07:54] VITALS: RESP 24
[2020-03-03] MEDS: 0.9 % Sodium Chloride Flush 3 ML SYRINGE 2 ML IVFLUSH (07:55)
[2020-03-03 08:00] VITALS: RESP 24
[2020-03-03] MEDS: Albuterol/Iprat 2.5/0.5MG 3 ML AMPUL.NEB INHALE (08:30)
[2020-03-03 08:49] VITALS: PULSE 69; RESP 18; O2SAT 65
[2020-03-03 09:57] VITALS: RESP 20
--- NOTE | 2020-03-03 10:08 | MHC.CLN ---
CONCERT SINGER IN PLACE TF DISCONTINUED WILL FOLLOW WITH CARE TEAM AND PROVIDE SUPPORT NEEDED
[2020-03-03 11:45] VITALS: RESP 24
[2020-03-03] MEDS: Scopolamine 1.5 MG PATCH.TD.3 TRANSDERMA (12:04)
--- NOTE | 2020-03-03 12:34 | PC.NURSE ---
PATIENT SCLEROSCOPE TESTER STATUS. TIME OF 12:20 PER . NOTIFIED [facility] ( ) AT 12:25. PATIENT DECLINED, REF#[id number].
--- NOTE | 2020-03-03 12:34 | PM.EVENT ---
Event Note Event Note: Called by RN to report that the patient had . Pt seen and examined. On exam - no response to verbal or tactile stimuli. Pupils -- dilated and fixed CVS - no audible heart sounds Lungs - no spontaneous respirations Neuro - unresponsive Time of called -- 1220pm. Family bedside.
--- NOTE | 2020-03-03 12:36 | PM.EVENT ---
Event Note Event Note: called by the RN to report that the patient Patient seen and examined on exam -- unresponsive to tactile or verbal stimuli. Pupils fixed and dilated No audible heart sounds, No palpable pulse No spontaneous respirations time of called at 12:20 pm. Family bedside.
--- NOTE | 2020-03-03 15:52 | P.DS_ITS ---
DS: Providers Provider Date of admission: 02/13/20 16:53 Primary care physician: Unknown Physician Consults: 02/27/20 06:51 Consult to Infectious Diseases Routine Consulting Provider: John Jackman Reason for consultation: Meropenem 02/27/20 06:52 Consult to Wound Care Provider Routine Consulting Provider: Mcak Bernard 02/27/20 06:55 Consult to Neurology Routine Consulting Provider: Codie Palafox Reason for consultation: Parkinsons Eval and Meds DS: Diagnosis Discharge Diagnosis (1) Acute and chronic respiratory failure: Status: Acute (2) Parkinsons: Status: Acute (3) Aspiration pneumonia: Status: Acute (4) Severe protein-calorie malnutrition: Status: Acute DS: Summary Hospital Course Hospital Course: From the admission H&P: 60-year-old female with very advanced neuro degenerative disease, namely, parkinsonism on high doses of carbidopa/levodopa who on previous admission last month underwent tracheostomy and placement of a percutaneous jejunal feeding tube because of aspiration from her G-tube and was discharged on the and now 2 weeks later is readmitted with shortness of breath and acute hypo on chronic hypoxemic respiratory failure really requiring positive-pressure ventilation to maintain saturations and thusly admitted to the ICU And she was awake and alert not appearing to be in distress now that she is on the ventilator and her new CT scan shows what looks like extensive right upper may be right middle lobe ground-glass infiltrates with some elevation of liver transaminases and alkaline phosphatase no particular complaints referable to the GI tract but a significantly elevated CRP patient had a prolonged hospitalization. She was initially treated for respiratory failure requiring ventilatory support in the intensive care. She was placed on broad-spectrum antibiotics and fortunately was able to be successfully weaned from the ventilator. While on the floor, she was continued on her antibiotics which was switched to the p.o. meds. while awaiting stabilization so she could be sent to LTAC she suffered respiratory arrest ( du e to aspiration and mucus plugging) leading to cardiac arrest which again required management in the intensive care. Again she was successfully weaned and transitioned out to the floor but continued to require high-flow O2 and had multiple daily events of aspiration. the patient's family did change her code status after her respiratory arrest to DNR DNI and after multiple days of no improvement ultimately decided upon PERIOPERATIVE TECH status. Patient peacefully on 03/03/2020 at 12:20pm Time Spent with Patient Time attestation: Total time spent providing and/or coordinating discharge services: Physical Exam Vital Signs and I&O and Narrative: Vital Signs and I&O: Vital Signs Temp 97.9 F 03/02/20 16:00 Pulse 67 03/02/20 16:00 Resp 24 H 03/03/20 11:45 BP 105/60 03/02/20 16:00 Pulse Ox 94 03/02/20 16:00 Intake & Output 03/02/20 03/03/20 03/03/20 18:59 06:59 18:59 Output Total 1200 / 1200 Balance -1200 / -1200 Urine Output (Aver age ml/kg/hr) 2.22 Output: Output, Urine Am ount (Catheter) 1200 / 1200 Urethral 1200 / 1200 Other: NPO Yes Urine [place] Urine Color Concentrated Body Mass Index 19.3 Discharge Plan Discharge Date/Time: 03/03/20 12:20 Patient Disposition: Referrals: Physician,Unknown [Primary Care Provider] - Discharge Medications: No Action amantadine HCl 100 mg Capsule 100 mg feeding tube BID RF: 0 benztropine 0.5 mg Tablet 0.5 mg feeding tube BID RF: 0 entacapone 200 mg Tablet 200 mg feeding tube Q2-3H RF: 0 carbidopa-levodopa 25-100 mg Tablet 1.5 tab feeding tube Q2-3H RF: 0 famotidine 20 mg Tablet,Disintegrating 20 mg PO DAILY RF: 0 chlorhexidine gluconate [Peridex] 0.12 % Mouthwash 15 ml BUCCAL BID RF: 0 venlafaxine 75 mg Tablet 150 mg feeding tube DAILY RF: 0 sennosides-docusate sodium [Senna with Docusate Sodium] 8.6-50 mg Tablet 1 tab-cap PO BID RF: 0 melatonin 3 mg Tablet 3 mg feeding tube BEDTIME RF: 0 pentoxifylline 400 mg Tablet Extended Release 400 mg PO BID RF: 0 ropinirole 2 mg Tablet 2 mg feeding tube Q6-8H RF: 0 mirtazapine 15 mg Tablet,Disintegrating 15 mg PO BEDTIME RF: 0 Multivitamin Therapeutic Liquid 15 ml feeding tube DAILY RF: 0 polyethylene glycol Powder 17 ea miscellaneous DIRECTED RF: 0 midodrine 10 mg Tablet 10 mg PO TIDWM RF: 0 lactulose 10 gram/15 mL Solution 15 ml feeding tube BID RF: 0 glycopyrrolate 1 mg/5 mL (0.2 mg/mL) Solution 1 mg feeding tube Q6-8H RF: 0 omeprazole 20 mg Tablet,Disintegrat, Delay Rel 20 mg PO BID@0630,1630 RF: 0 Discharge Orders: Discharge Order (Routine); Ordered 03/03/20 Ordered By: Jf Roman
== END 2020-03-03 16:00 | disposition expired | DRG 130 ==
PROVIDERS: Internal Medicine; Admitting Provider Internal Medicine Cardiovascular Disease; Emergency Provider Emergency Medicine; Visit Provider Family Medicine
DX: J69.0 Pneumonitis due to inhalation of food and vomit (principal); E43 Unspecified severe protein-calorie malnutrition; J96.21 Acute and chronic respiratory failure with hypoxia; E87.0 Hyperosmolality and hypernatremia; L89.152 Pressure ulcer of sacral region, stage 2; G20 Parkinson's disease; D63.8 Anemia in other chronic diseases classified elsewhere; T17.990A Other foreign object in respiratory tract, part unspecified in causing asphyxiation, initial encounter; Z93.0 Tracheostomy status; Z20.828 Contact with and (suspected) exposure to other viral communicable diseases; Z68.1 Body mass index [BMI] 19.9 or less, adult; Z93.1 Gastrostomy status; K08.9 Disorder of teeth and supporting structures, unspecified; K21.9 Gastro-esophageal reflux disease without esophagitis; I46.8 Cardiac arrest due to other underlying condition; X58.XXXA Exposure to other specified factors, initial encounter; Y93.9 Activity, unspecified; Y92.9 Unspecified place or not applicable; Y99.9 Unspecified external cause status; Z79.899 Other long term (current) drug therapy; Z66 Do not resuscitate
CPT/HCPCS: 0202U; 36415; 36600; 70450; 71045; 71250; 74176; 74220; 80048; 80051; 80053; 82040; 82140; 82272; 82550; 82565; 82803; 82947; 83605; 83615; 83735; 83880; 84100; 84145; 84484; 84520; 85007; 85025; 85027; 85379; 86140; 86738; 86850; 86900; 86901; 86920; 86923; 87040; 87070; 87205; 87324; 87449; 87635; 93005; 93970; 94002; 94003; 94010; 94799; 96361; 96374; 96375; 99291; J0171; J1956; J2185; J2270; J2543; J2920; J3010; P9016; P9047